=== PATIENT | male | born 1980 | race Caucasian/White ===

== ENCOUNTER 2018-10-01 20:51 | Emergency (ER) | payer SELFPAY ==
[~2018-10-01] VITALS: Ht 175.3 cm; Wt 109.0 kg
[2018-10-01] MEDS ORDERED: HYDROCODONE/ACETAMINOPHEN 5/325MG TABLET PO PRN (23:45)
[2018-10-01 23:54] VITALS: BP 142/95
== END 2018-10-02 01:55 | disposition home or self-care (01) ==
LOC: ER 22:14
DX: M79.641 Pain in right hand (principal); M25.531 Pain in right wrist; F17.200 Nicotine dependence, unspecified, uncomplicated
CPT/HCPCS: 73130; 99283; 99406